=== PATIENT | female | born 1950 | race Caucasian/White ===

== ENCOUNTER → 2020-12-07 | Outpatient (CLI) | payer BC ==
--- NOTE | 2020-12-07 13:40 | XR ---
EXAMINATION TYPE: XR KUB DATE OF EXAM: 12/07/2020 COMPARISON: NONE HISTORY: Pain TECHNIQUE: Single supine KUB image of the abdomen is obtained FINDINGS: Small bowel demonstrates no evidence for dilatation or air fluid levels. Gas and fecal material is seen in non-distended colon. No convincing evidence for pneumoperitoneum. No unusual calcifications. The lung bases are clear. Right double pigtail stent is in place. Proximal stent component is at the approximate L4-5 level. No definite calculi are seen along the course of the stent. IMPRESSION: 1. Overall nonobstructive bowel gas pattern.
== END | disposition home or self-care (01) ==
LOC: RADXRMAIN 13:13
PROVIDERS: ATTEND Urology
DX: N13.30 Unspecified hydronephrosis (principal)
CPT/HCPCS: 74018

== ENCOUNTER → 2021-02-19 | Outpatient (CLI) | payer MEDICARE, OTHER ==
[~2021-02-19] MED LIST: FUROSEMIDE 10 MG/ML 2 ML VIAL IV ONE
--- NOTE | 2021-02-20 11:12 | NM ---
EXAMINATION TYPE: NM lasix renogram DATE OF EXAM: 02/19/2021 COMPARISON: NONE HISTORY: Right ureteropelvic junction obstruction Following administration of 9.76 mCi Tc 99m MAG3 with 20mg Lasix. Immediate images post injection FINDINGS: Left: 55.5 %. Right: 44.5 %. Max renal flow left: 3.5 minutes. Max renal flow right: 4.5 minutes. Satisfactory accumulation of radiotracer within both renal collecting systems. There is symmetric and uniform perfusion. After the administration of Lasix, there is prompt excretion from both collecting systems. There is prominent radiotracer activity within the right renal pelvis. T 1/2 left: 18.4 minutes. T 1/2 right: 12.3 minutes. IMPRESSION: 1. Both kidneys demonstrate abnormal Lasix renogram, with T1/2 in the indeterminate range bilaterally , however the right kidney is near normal with a T1/2 of 12.3 minutes. 2. Pooling of radiotracer within the right renal pelvis. Findings may represent mild partial ureterop elvic junction obstruction versus prominent extrarenal pelvis. There is no available imaging for kimberley nicky comparison. Recommend correlation with any available outside imaging.
== END | disposition home or self-care (01) ==
LOC: RADNMMAIN 13:05
PROVIDERS: ATTEND Urology
DX: N13.5 Crossing vessel and stricture of ureter without hydronephrosis (principal)
CPT/HCPCS: 78708; A9562

== ENCOUNTER → 2022-03-08 | Day surgery (SDC) | payer MEDICARE, OTHER ==
[2022-03-08 08:54] VITALS: BP 132/76; PULSE 74; RESP 74; TEMP 98.3
--- NOTE | 2022-03-13 13:46 | MM ---
Risk Values: Stephania 5 year model risk: 1.5%. NCI Lifetime model risk: 4.5%. Prior Study Comparison: 02/20/2007 Bilateral Screening Mammogram, [facility]. 06/09/2008 Bilateral Screening Mammogram, [facility]. 06/22/2009 Bilateral Screening Mammogram, [facility]. Pathology Description: Location: upper outer quadrant, middle, central. Marker Left Behind. Specimen Radiograph. Calcium Found: Yes Approach: Lateral to Medial Needle Type: Eviva Cores: 7 Skin Nicks: 1 Gauge: 9 Pathology Results: Result: Benign, Fibroadenomatoid hyperplasia. LEFT BREAST, STEREOTACTIC NEEDLE CORE BIOPSY: Fibroadenomatoid hyperplasia with calcifications in a background of fibrocystic changes. Overall Assessment: Benign Management: Diagnostic Mammogram of the left breast in 6 months. Electronically signed and approved by: Venkata Eid M.D. Radiologis
== END ==
LOC: RADMAMWWP 07:17
PROVIDERS: ATTEND Surgery
DX: N60.12 Diffuse cystic mastopathy of left breast (principal); D24.2 Benign neoplasm of left breast
CPT/HCPCS: 88305; 19081; A4648; J2001

== ENCOUNTER → 2024-02-19 | Outpatient (CLI) | payer MEDICARE, OTHER ==
[2024-02-19 14:44] LABS: ALT 81 U/L (8-44); AST 61 U/L (13-35); LDL Cholesterol,Calculated 138.4 mg/dL (0.0-131.0)
== END | disposition home or self-care (01) ==
LOC: LABWHC1 09:00
PROVIDERS: ATTEND Internal Medicine Cardiovascular Disease
DX: E78.2 Mixed hyperlipidemia (principal)
CPT/HCPCS: 36415; 80061; 84450; 84460